=== PATIENT | male | born 1965 | race Caucasian/White ===

== ENCOUNTER 2016-12-25 09:49 | Inpatient (IN) | payer SELFPAY ==
[~2016-12-25] VITALS: Ht 188 cm; Wt 108.9 kg
--- NOTE | 2016-12-25 10:00 | NUR ---
pt took own asa 325 in am before coming to er. pt refused aspirin ec. notified
[2016-12-25] MEDS ORDERED: ASPI-612 PO (10:09)
[2016-12-25] MEDS ORDERED: ASPIRIN EC 81 MG TABLET.DR PO ONE (10:16)
[2016-12-25 10:33] LABS: BASOPHILS # (AUTO) 0.1 K/uL (0.0-8.0); BASOPHILS % (AUTO) 0.8 % (0.0-2.0); EOSINOPHILS # (AUTO) 0.1 K/uL (0.0-0.7); EOSINOPHILS % (AUTO) 0.7 % (0.0-7.0); HEMATOCRIT 44.7 % (40-50); HEMOGLOBIN 14.6 G/DL (14.0-18.0); LYMPHOCYTES # (AUTO) 2.1 K/UL (0.8-4.8); LYMPHOCYTES % (AUTO) 19.8 % (20.5-51.5); MEAN CORPUSCULAR HGB CONC 33 g/dL (32.0-37.0); MEAN CORPUSCULAR VOLUME 92.1 FL (82.0-92.0); MONOCYTES # (AUTO) 0.8 K/UL (0.1-1.30); MONOCYTES % (AUTO) 7.3 % (0.0-11.0); NEUTROPHILS # (AUTO) 7.5 K/UL (1.8-8.9); NEUTROPHILS % (AUTO) 71.4 % (38.5-71.5); PLATELET COUNT (AUTO) 255 K/UL (150-450); RED BLOOD CELL COUNT(AUTO) 4.86 MIL/UL (4.7-6.1); WHITE BLOOD COUNT (AUTO) 10.6 K/UL (4.0-11.2)
[2016-12-25 10:41] LABS: CREATININE 1.1 mg/dL (0.6-1.3); POTASSIUM 3.9 mmol/L (3.5-5.1)
[2016-12-25] MEDS ORDERED: MORPHINE SULFATE 4 MG/1 ML DISP.SYRIN IV ONE (10:45)
[2016-12-25] MEDS ORDERED: PANTOPRAZOLE SODIUM 40 MG VIAL IV ONE (10:45)
[2016-12-25] MEDS ORDERED: NITROGLYCERIN OINT 1 GM PACKET TP ONE ×2 (10:45→10:55)
[2016-12-25] MEDS ORDERED: ONDANSETRON IV *ER 4 MG/2 ML VIAL IV ONE (10:45)
[2016-12-25 10:48] LABS: BILIRUBIN,TOTAL 0.5 mg/dL (0.2-1.0); TOTAL PROTEIN, SERUM 8.2 g/dL (6.4-8.2)
[2016-12-25 10:53] LABS: EOSINOPHILS % (MANUAL) 1 % (0-8); LYMPHOCYTES % (MANUAL) 17 % (20-40); MONOCYTES % (MANUAL) 10 % (2-10); NEUTROPHILS % (MANUAL) 72 % (42-75)
[2016-12-25] MEDS ORDERED: MORPHINE SULFATE 4 MG/1 ML DISP.SYRIN ONE (10:55)
[2016-12-25] MEDS ORDERED: ONDANSETRON 4 MG/2 ML VIAL ONE (10:56)
[2016-12-25] MEDS ORDERED: PANTOPRAZOLE SODIUM 40 MG VIAL ONE (10:56)
--- NOTE | 2016-12-25 11:08 | NUR ---
dr. muriel Bourgeois AT BEDSIDE.
[2016-12-25] MEDS: IV NS 1000 ML 1,000 ML IV PRN ×2 (11:09→17:44)
--- NOTE | 2016-12-25 12:00 | NUR ---
received from ER per kia awake alert and oriented with c/o chest pain, jaw pain radiating to left arm [employer], on 2l/nc, denies of shortness of breath, tele applied SR 60's, routine admission care done, initial assessment done, ivf NS infusing on the left AC, oriented to bed controls and call buttons- verbalized understanding
[2016-12-25 12:05] VITALS: BP 133/65
--- NOTE | 2016-12-25 13:00 | NUR ---
Dr Kramer here and informed of admission.
[2016-12-25] MEDS ORDERED: Z GUARD REMEDY PASTE 57 GM TUBE TOP PRN (13:15)
[2016-12-25] MEDS ORDERED: ONDANSETRON 4 MG/2 ML VIAL IV PRN (13:15)
[2016-12-25] MEDS ORDERED: HYDROCODONE/APAP 5-325MG TABLET PO PRN (13:15)
[2016-12-25] MEDS ORDERED: ACETAMINOPHEN 325 MG TABLET PO PRN (13:15)
[2016-12-25] MEDS ORDERED: MAGNESIUM HYDROXIDE 30 ML LIQUID UDC PO PRN (13:15)
[2016-12-25] MEDS ORDERED: ZOLPIDEM 5 MG TABLET PO PRN (13:15)
[2016-12-25] MEDS: NITROGLYCERIN 0.4 MG/TAB BOTTLE SL PRN ×3 (14:17→14:29)
--- NOTE | 2016-12-25 14:17 | NUR ---
c/o chest pain and left side back pain, Dr Kramer informed, ekg was done, medicated with NTG 0.4 SL XQ5 MIN X 3- BP134/67- 138/60, states still no relief from NTG- wanted to get his iv pain med- medicated with morphine 2mg iv as prn- will continue to monitor
[2016-12-25] MEDS: MORPHINE SULFATE 2 MG/1 ML DISP.SYRIN IV PRN ×2 (14:42→18:55)
--- NOTE | 2016-12-25 14:42 | NUR ---
states pain 06/08, sitting, with his lap top and looks comfortable, tele SR 70's Addendum: 12/25/16 at 1738 by KEM GUILLEN RN morphine sulfate 2mg was given at 1442 and 1515 pain scale 06/08
[2016-12-25 15:00] VITALS: BP 138/68
[2016-12-25 15:47] LABS: *BILIRUBIN,URIN NEGATIVE (NEGATIVE); *BLOOD, URINE Trace-intact (NEGATIVE); *CLARITY,URINE SLIGHTLY CLOUDY (CLEAR); *COLOR,URINE YELLOW (YELLOW); *KETONES,URINE NEGATIVE (NEGATIVE); *PROTEIN,URINE 1+ (NEGATIVE); *UROBILINOGEN,URINE 0.2 E.U./dl (NORMAL); LEUKOCYTE ESTERASE ,URINE NEGATIVE (NEGATIVE); NITRITE, URINE NEGATIVE (NEGATIVE); UGLUCOSE NEGATIVE (NEGATIVE)
[2016-12-25 15:52] LABS: BACTERIA,URINE NONE SEEN /HPF (NONE SEEN); RBC,URINE 0-3 /HPF (0-3); SQUAMOUS EPITHELIAL CELL,UR FEW /HPF (NONE SEEN); WBC,URINE 0-3 /HPF (0-3)
--- NOTE | 2016-12-25 16:00 | NUR ---
took off heart monitor and want to go outside- pt is a smoker- informed that he cannot go down and said " i will leave the hospital AMA" Dr Chapman informed
--- NOTE | 2016-12-25 16:40 | NUR ---
states will stay and have his stress test in am- Dr Kramer informed
--- NOTE | 2016-12-25 17:41 | NUR ---
consent for stress test in am signed
--- NOTE | 2016-12-25 17:50 | NUR ---
resting in bed, informed of EGD and laparoscopic cholecystedtomy to be done in am- pt in agreement Addendum: 12/25/16 at 1753 by KEM GUILLEN RN error wrong entry
--- NOTE | 2016-12-25 17:53 | NUR ---
sitting in bed, denies of chest pain, no distress noted, tele SR- up and about in the room and [address] way, all needs attended and met, [facility] consent signed, call light within reach
--- NOTE | 2016-12-25 19:02 | NUR ---
c/o chest pain 01/06- refused to take NTG SL- states "it doesn't work" wanted his pain med-morphine 2mg iv prn given
--- NOTE | 2016-12-25 19:10 | NUR ---
Bedside reporting with CARMEN Cormier. Patient awake, watching TV during initial rounds. Denies any pain/discomforts at this time.. IVF infusing on LAC, no s/s of infiltration. Continue care as planned.
--- NOTE | 2016-12-25 19:50 | NUR ---
EKG done at bedside by RT, tolerated well.
[2016-12-25 20:00] VITALS: BP 117/55
--- NOTE | 2016-12-25 20:25 | NUR ---
Security called reporting that patient is in the patio. Patient denied smoking when asked.
[2016-12-25] MEDS ORDERED: SIMVASTATIN 10 MG TABLET PO SCH (21:00)
[2016-12-25] MEDS ORDERED: METOPROLOL TARTRATE 50 MG TABLET PO SCH (21:00)
--- NOTE | 2016-12-25 23:57 | NUR ---
Complaining of right flank pain, offered [place], refused stating that that is junk and insisted to have morphine rather than [place].
--- NOTE | 2016-12-26 | NUR ---
Informed patient that we will initiating the NPO after midnight order but patient verbalized refusal. Pt states" I can do whatever I want to do, I won't allow anybody dictating me what to do and what not to do. Charge made aware.
[2016-12-26 00:33] VITALS: BP 123/73
[2016-12-26 04:00] VITALS: BP 130/71
[2016-12-26] MEDS: IV NS 1000 ML 1,000 ML IV PRN (04:46)
--- NOTE | 2016-12-26 05:13 | NUR ---
Slept well after Morphine administration.
[2016-12-26] MEDS: MORPHINE SULFATE 2 MG/1 ML DISP.SYRIN IV PRN ×2 (05:51)
[2016-12-26 06:22] LABS: BASOPHILS % (AUTO) 0.5 % (0.0-2.0); EOSINOPHILS # (AUTO) 0.1 K/uL (0.0-0.7); EOSINOPHILS % (AUTO) 0.9 % (0.0-7.0); HEMATOCRIT 38.3 % (40-50); HEMOGLOBIN 12.7 G/DL (14.0-18.0); LYMPHOCYTES # (AUTO) 1.8 K/UL (0.8-4.8); LYMPHOCYTES % (AUTO) 18.5 % (20.5-51.5); MEAN CORPUSCULAR HEMOGLOBIN 30.5 UUG (27.0-31.0); MEAN CORPUSCULAR HGB CONC 33 g/dL (32.0-37.0); MEAN CORPUSCULAR VOLUME 91.9 FL (82.0-92.0); MONOCYTES # (AUTO) 0.8 K/UL (0.1-1.30); MONOCYTES % (AUTO) 8.3 % (0.0-11.0); NEUTROPHILS # (AUTO) 6.8 K/UL (1.8-8.9); NEUTROPHILS % (AUTO) 71.8 % (38.5-71.5); PLATELET COUNT (AUTO) 210 K/UL (150-450); RED BLOOD CELL COUNT(AUTO) 4.17 MIL/UL (4.7-6.1); WHITE BLOOD COUNT (AUTO) 9.5 K/UL (4.0-11.2)
[2016-12-26] MEDS ORDERED: PANTOPRAZOLE SODIUM 40 MG TABLET.DR PO SCH (07:00)
--- NOTE | 2016-12-26 07:00 | NUR ---
PT AGITATED REFUSED PROCEDURES TO BE DONE. WANTS TO GO HOME.
[2016-12-26 07:03] LABS: THYROID STIMULATING HORMONE 0.948 mIU/mL (0.358-3.740)
[2016-12-26 07:05] LABS: MAGNESIUM 1.9 mg/dL (1.8-2.4); PHOSPHOROUS 2.7 mg/dL (2.5-4.9); POTASSIUM 4.2 mmol/L (3.5-5.1)
--- NOTE | 2016-12-26 07:55 | NUR ---
PT WENT HOME AMRamone JEAN NOTIFIED.
[2016-12-26] MEDS ORDERED: ASPIRIN EC 81 MG TABLET.DR PO SCH (09:00)
[2016-12-26] MEDS ORDERED: ASPIRIN 325 MG TABLET PO SCH (09:00)
[2016-12-26] MEDS ORDERED: REGADENOSON 0.4 MG/5 ML PREFILLED SYR IV ONE (11:00)
== END 2016-12-26 07:55 | disposition left against medical advice (07) | DRG 303 ==
LOC: ER 09:49 → TELE 11:36
DX: I25.10 Atherosclerotic heart disease of native coronary artery without angina pectoris (principal); I10 Essential (primary) hypertension; R07.9 Chest pain, unspecified; I25.2 Old myocardial infarction; Z76.5 Malingerer [conscious simulation]; E78.5 Hyperlipidemia, unspecified; Z86.718 Personal history of other venous thrombosis and embolism; Z86.711 Personal history of pulmonary embolism; E66.9 Obesity, unspecified; Z68.30 Body mass index [BMI] 30.0-30.9, adult; F17.210 Nicotine dependence, cigarettes, uncomplicated
CPT/HCPCS: 36415; 70030-TC; 71010; 83735; 84100; 84443; 85025; 85610; 93005; A4663; C9113; J2270; J2405; J7030